=== PATIENT | male | born 1960 | race Caucasian/White ===

== ENCOUNTER 2024-06-16 09:37 | Outpatient (RCR) | payer BC, SELFPAY ==
--- NOTE | 2024-06-16 14:03 | CTCFLWUP_ITS ---
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 He underwent parotidectomy and chemoradiation, with his last PET scan in May 2023 showing no interval metastatic disease. He reports successful smoking cessation 3 months ago and is experiencing seasonal allergies with congestion and pressure. Physical examination reveals tightness in the oral cavity. Plans include ordering a CT scan for surveillance, referring to ENT for evaluation, and advising oral exercises. 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 He underwent parotidectomy and chemoradiation, with his last PET scan in May 2023 showing no interval metastatic disease. Mr. Barrera reports feeling generally well, with his main complaint being seasonal allergies. He experiences congestion, head pressure, fatigue, and feeling washed out when exposed to outdoor allergens, particularly in the [facility] area. These symptoms are worse in the morning and improve when he is indoors. He notes that he never had allergies until moving to this area. The patient quit smoking completely 3 months ago, in February 2024. He had previously been using Wellbutrin to assist with smoking cessation and reports that it was helpful. He mentions that mornings with coffee were particularly challenging, during which he would smoke two or three cigarettes, but now he has ceased all tobacco use. Mr. Barrera denies any new symptoms related to his cancer history. He has not had any recent scans or follow-ups with ENT since his initial cancer diagnosis and treatment. He reports no difficulty with eating or swallowing, though the clinician notes some tightness in his oral cavity during examination. The patient's overall health appears stable, with no reported significant changes in his physical or mental status since his last visit. He remains active, planning a cruise to [place] next month and a motor home trip to [place] for the summer. 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 Previously used Wellbutrin to aid cessation. Last smoked 2-3 cigarettes per day, primarily in the morning with coffee. - Living Situation: Lives with spouse and adult daughter with her baby - Family: Has 4 daughters, one of whom lives with patient - Hobbies/Interests: Owns a [employer], plans to travel to [place] for a cruise and to [facility] for the summer - Occupation: Retired Review of Systems General: Positive for fatigue. HEENT: Positive for nasal congestion, sinus pressure. Respiratory: Positive for allergies. ONCOLOGY HISTORY: DIAGNOSIS: Stage III (T1, N1) poorly differentiated carcinoma, favor squamous cell carcinoma of the right parotid gland. P16 negative. S/p right superficial parotidectomy with facial nerve dissection and monitoring (03/07/2021) S/p chemoradiation using weekly cisplatin as a radiosensitizing agent (05/09/2021 - 06/13/2021). 8 mm left lung posterior nodule (CT scan 06/02/2023) Stopped smoking 06/03/2023. REASON FOR TODAY?S VISIT: This is office follow-up visit. Mr. Barrera is here at [facility]. He is clinically doing well. Denies any cough, chest pain, abdominal pain or leg cramps. Ambulating well without any help. Recent PET/CT scan was negative for recurrence. CT scan of the chest showed a 8 mm nodule which was 7 mm on the prior scan as documented below. Mr. Barrera stopped smoking on June 03, 2023. 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 July 2020: Patient started noticing a mass in the right angle of the jaw. 10/31/2020: CT scan of the neck without contrast? 12/11/2020: MRI of the orbit, face and neck with and without contrast? 01/03/2021: fine-needle aspiration of the right parotid neck mass? 03/07/2021: Mr. Barrera had a right superficial parotidectomy with facial nerve dissection and monitoring 05/06/2021?06/21/2021: Mr. Barrera was treated with 6300 cGy radiation along with weekly cisplatin in the adjuvant setting. 10/04/2027 2: MRI scan of the face and neck with and without contrast? 11/07/2021: CT scan of the chest without contrast? 04/09/2022: CT scan of the chest without contrast 06/02/2023: CT scan of the chest without contrast? 06/08/2023: PET/CT scan OTHER MEDICAL HISTORY/CONDITIONS: FAMILY HISTORY: ?Clone Family Hx? SOCIAL HISTORY: MEDICATIONS: 1. multivitamin - 1 Capsule Daily 2. naproxen - 500 mg As directed 3. [place] - 5 mg As needed 4. Wellbutrin SR - 150 mg Daily?Palabra Meds? Medications Last Reconciled by Federica Huff MA on 06/16/2024 ALLERGIES: No Known Allergies REVIEW OF SYSTEMS: A complete 14-point review of systems was performed and is negative except as noted in interval history. PHYSICAL EXAMINATION: VITAL SIGNS: Temperature?98.7, B/P?119/85, Oxygen?Saturation?95% Weight?222?lbs PAIN: 0 - No pain ECOG Performance Status: 0 - Asymptomatic and fully active GENERAL APPEARANCE: Appears well, in no apparent distress, appropriately interactive. HEENT: Normocephalic, no temporal wasting, normal conjunctiva, no scleral icterus, normal hearing, lips without lesions, neck normal range of motion. CARDIOVASCULAR: Not assessed. PULMONARY: Normal respiratory effort, no respiratory distress or use of accessory muscles, speaking in full sentences, no tachypnea. EXTREMITIES: No pedal edema or cyanosis. SKIN: Normal skin appearance. NEUROLOGIC: Alert and oriented x4. PSHYCHIATRIC: Appropriate affect, mood normal, behavior normal, intact thought and speech. LABORATORY DATA: I have personally reviewed and interpreted each of the patient?s relevant lab tests, abnormal findings are below: Date 04/16/22 05/07/23 ??WHITE?BLOOD?COUNT?(Thou/mm3) 8.2 9.3 ??RED?BLOOD?COUNT?(Miln/mm3) 4.95 4.93 ??HEMOGLOBIN?(gm/dl) 15.2 14.9 ??HEMATOCRIT?(%) 45.7 44.1 ??PLATELET?COUNT?(Thou/mm3) 292 281 ??NEUTROPHILS?%,?AUTO?(%) 70 67 ??LYMPH?%,?AUTO?(%) 21 23 ??NEUTROPHILS,?AUTO?(Thou/mm3) 5.7 6.2 ??GLUCOSE,RANDOM?(mg/dL) ? 85 ??BLOOD?UREA?NITROGEN?(mg/dL) ? 10 ??CREATININE?(mg/dL) ? 0.90 ??SODIUM?(mmol/L) ? 138 ??POTASSIUM?(mmol/L) ? 4.0 ??CHLORIDE?(mmol/L) ? 105 ??CrCl?(CandG)?(ml/min) ? 105.07 ??AST/SGOT?(Unit/L) ? 17 ??ALT/SGPT?(Unit/L) ? 14 ??ALKALINE?PHOSPHATASE?(Unit/L) ? 50 ??BILIRUBIN,?TOTAL?(mg/dL) ? 0.5 ??PROTEIN?TOTAL?(gm/dl) ? 7.7 ??ALBUMIN,?SERUM?(gm/dl) ? 4.5 ??GLOBULIN?(gm/dl) ? 3.2 ??ALBUMIN/GLOBULIN?RATIO ? 1.4 ??CALCIUM,?SERUM?(mg/dL) ? 9.6 ??CALCIUM?SERUM?(CORRECTED)?(mg/dL) ? 9.6 ??CEA?(O*)?(ng/ml) ? 3.5 Physical Examination HEENT: Oral cavity is congested and tight. Tongue appears large relative to mouth size. Limited ability to open mouth wide due to prior surgery. Unable to visualize posterior oropharynx. Laboratory, Imaging, and Diagnostic Test Results - PET scan (May 2023): No interval metastatic disease - CT scan (October 2023): Lung nodules stable since May, no other significant findings ASSESSMENT/PLAN: Stage III (T1, N1) poorly differentiated carcinoma, favor squamous cell carcinoma of the right parotid gland. P16 negative. 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 He underwent parotidectomy and chemoradiation. Last PET scan in May 2023 showed no interval metastatic disease. Patient remains at high risk for recurrence until this year. No recent imaging studies have been performed since October 2023, which showed stable lung nodules. Given the history of parotid cancer and smoking, there is a need for close surveillance of the aerodigestive tract. Plan: - Order CT scan of neck and chest for surveillance - Refer to ENT for full evaluation, including endoscopic examination of the upper aerodigestive tract - Follow up in 6 months to review scan results and ENT evaluation - Advised patient to perform oral exercises: - Gargle with salt water, especially at night - Practice opening mouth wide and moving tongue to strengthen muscles Smoking cessation Assessment: Patient reports successful smoking cessation 3 months ago (February 2024). Previously used Wellbutrin to assist with cessation. Patient remains at high risk for smoking-related cancers, particularly lung cancer and cancers of the aerodigestive tract. Plan: - Continue to monitor for potential smoking-related cancers during follow-up visits - Encourage continued abstinence from smoking ORDERS: Order # Description [id number] CT Scan + Chest + Neck + With W/O Contrast [id number] Comprehensive Metabolic Panel - 12 + CBC with Auto Diff + MD Follow Up 6 Month RETURN TO CLINIC: I will see him back in 2 months with a telephone appointment for the scan and then in the clinic in 6 month. BILLING AND COMPLIANCE: I reviewed external records from providers outside my specialty as summarized above. I spent a total of 50 minutes on this patient?s care on the day of their visit excluding time spent related to any billed procedures. This time includes time spent with the patient as well as time spent documenting in the medical record, reviewing patients records and tests, obtaining history, placing orders, communicating with other healthcare professionals, counseling the patient, family or caregiver, and/or care coordination for the diagnoses above. Electronically Signed by: Rodriguez Thayer MD T: 2:01 PM CC: PCP: Kassidy Leyva Referring: Kassidy Leyva This document was completed utilizing speech recognition software. Grammatical errors, random word insertions, pronoun errors, and incomplete sentences are an occasional consequence of this system due to software limitations, ambient noise, and hardware issues. Any formal questions or concerns about the content, text or information contained within the body of this dictation should be directly addressed to the provider for clarification.
== END 2024-06-22 23:59 | disposition home or self-care (01) ==
LOC: SCTC 09:37
PROVIDERS: PCP Family Medicine; Referring Provider Nurse Practitioner Family; Visit Provider Internal Medicine Hematology & Oncology
DX: C07 Malignant neoplasm of parotid gland (principal); Z90.89 Acquired absence of other organs; Z92.3 Personal history of irradiation; Z92.21 Personal history of antineoplastic chemotherapy; Z87.891 Personal history of nicotine dependence
CPT/HCPCS: 99212; G0463

== ENCOUNTER → 2024-07-21 | Outpatient (CLI) | payer BC, SELFPAY ==
[2024-07-19 10:27] LABS: Basophils # (Auto) 0.1 Thou/mm3 (0.0-0.2); Basophils % (Auto) 1 % (0-2.5); Eosinophils # (Auto) 0.3 Thou/mm3 (0.0-0.5); Eosinophils % (Auto) 4 % (0-10); Hematocrit 45.6 % (41.0-53.0); Hemoglobin 15.4 g/dL (13.5-16.0); Immature Granulocytes % (Auto) 0 % (0-0); Immature Granulocytes Auto 0.01 Thou/mm3 (0.00-0.00); Lymphocytes # (Auto) 1.8 Thou/mm3 (1.0-4.8); Lymphocytes % (Auto) 24 % (10-50); Mean Corpuscular HGB Conc 33.8 g/dl (31.0-37.0); Mean Corpuscular Hemoglobin 30.6 pg (25.0-35.0); Mean Corpuscular Volume 91 fL (80-100); Monocytes # (Auto) 0.6 Thou/mm3 (0.0-0.8); Monocytes % (Auto) 8 % (0-12); Neutrophils # (Auto) 4.5 Thou/mm3 (1.8-7.7); Neutrophils % (Auto) 63 % (37-80); Nucleated Red Blood Cell % 0 /100 WBC (0); Platelet Count 259 Thou/mm3 (140-440); RDW Standard Deviation 42.8 fL (35.1-43.9); Red Blood Count 5.04 Miln/mm3 (4.50-5.90); White Blood Count 7.2 Thou/mm3 (3.8-10.6)
[2024-07-19 10:58] LABS: Alanine Aminotransferase 31 U/L (10-49); Albumin, Serum 4.4 gm/dL (3.4-4.8); Albumin/Globulin Ratio 1.7 (1.2-2.2); Alkaline Phosphatase 55 U/L (46-116); Anion Gap 11 (7-16); Aspartate Amino Transferase 28 U/L (0-34); BUN/Creatinine Ratio 13 Ratio (12-20); Bilirubin,Total 0.4 mg/dL (0.3-1.2); Blood Urea Nitrogen 13 mg/dL (9-23); Calcium 9.1 mg/dL (8.3-10.6); Calcium (Corrected) 9.1 mg/dL (8.5-10.1); Carbon Dioxide 26.3 mMol/L (20.0-31.0); Chloride 106 mMol/L (98-107); Globulin 2.6 gm/dL (2.3-3.5); Glucose 105 mg/dL (74-106); Osmolality,Calculated 285 (275-295); Potassium 4.4 mMol/L (3.4-5.1); Sodium 143 mMol/L (136-145); eGFR > 60 See Note
--- NOTE | 2024-07-21 | XR_ITS ---
Examination: CT soft tissue neck, without intravenous contrast. 2-D coronal reconstructions. 2-D sagittal reconstructions. Date and time of exam :July 21, [address] soft tissue neck 10/31/2020 INDICATIONS: Diagnosis malignant neoplasm parotid gland, 16 mm mass in the right parotid gland on CT soft tissue neck 2020. CTDI: vol (mGy):19.6 DLP: (mGycm):605 Technique: 1.25 mm axial sections of the neck of the obtained. Coronal and sagittal reconstructions have been obtained. Low dose protocols were performed. One or more of the following dose reduction techniques were used; automated exposure control, adjustment of the mA and/or KV according to patient size, use of iterative reconstruction technique. Findings: Please see the CT soft tissue neck report with contrast There is resection of the right parotid gland with surgical clips No mass in the parotid bed on the right is noted No pathologic lymphadenopathy Normal epiglottis The larynx appears normal IMPRESSION: Status post resection right parotid gland No pathologic cervical lymphadenopathy
--- NOTE | 2024-07-21 | XR_ITS ---
Examination: CT chest, without intravenous contrast. Sagittal and coronal 2-D reconstructions. Exam date and time: July 21, 2024 1541 hours INDICATIONS: Diagnosis malignant neoplasm parotid gland, pulmonary nodules on CT chest June 02, 2023 CTDI:vol (mGy) 25.4 DLP: (mGycm) 970 Technique: Multiple 3.0 mm axial sections of the chest to been obtained. Bone and lung density settings are obtained. Sagittal and coronal 2-D reconstructions have been obtained. Low dose protocols were performed. One or more of the following dose reduction techniques were used; automated exposure control, adjustment of the mA and/or KV according to patient size, use of iterative reconstruction technique. Findings: Please see the CT chest report postcontrast today New 3 mm pulmonary nodule right middle lobe compared to CT chest November 20, 2023 IMPRESSION: New 3 mm pulmonary nodule right middle lobe compared to CT chest November 20, 2023, recommend six-month follow-up CT chest without contrast
--- NOTE | 2024-07-21 14:30 | XR_ITS ---
Examination: CT soft tissue neck with intravenous contrast CT chest with intravenous contrast 2-D sagittal and coronal reconstructions Exam date and time: July 21, [address] chest with intravenous contrast 11/20/2023, PET CT scan June 08, 2023, CT soft tissue neck 10/31/2020 INDICATIONS: Smoking history 40 years, 4 mm pulmonary nodule left upper lobe 3 mm pulmonary nodule anterior left lung 7 mm pulmonary nodule left lower lobe on CT chest November 20, 2023, 16 mm right parotid gland mass on CT soft tissue neck 10/31/2020 CTDI:vol (mGy) 50.3 DLP: (mGycm) 1838 Technique: Multiple axial sections of the soft tissue neck thorax have been obtained. Sections have been obtained, 3 mm slice thickness. Mediastinal and lung density settings have been obtained. Intravenous contrast administered, 60 cc Isovue 370 2-D sagittal, coronal images obtained. Low dose protocols were performed. One or more of the following dose reduction techniques were used; automated exposure control, adjustment of the mA and/or KV according to patient size, use of iterative reconstruction technique. Findings: Small retention cyst left maxillary antrum Symmetrical nasopharynx oropharynx Surgical resection right parotid gland 8mm right carotid triangle lymph node The larynx appears normal Normal epiglottis Moderate degenerative disc disease C6-C7 Thoracic aortic calcification no aneurysm dilatation No pulmonary artery filling defects No paratracheal tracheobronchial or bronchopulmonary adenopathy COPD with areas of airspace destruction New 3 mm pulmonary nodule right middle lobe, axial image 65, not seen on the 11/20/2023 exam Moderate pulmonary fibrosis No visualized liver or splenic lesion Contracted gallbladder No pancreatic mass Normal adrenal glands Kidneys partially visualized no hydronephrosis IMPRESSION: Status post resection right parotid gland No pathologic cervical lymphadenopathy. The larynx appears normal COPD, moderate pulmonary fibrosis New 3 mm pulmonary nodule right middle lobe, not seen on the CT chest November 20, 2023, suggest continued six-month follow-up CT chest
== END | disposition home or self-care (01) ==
LOC: CCTX 14:01
PROVIDERS: PCP Family Medicine; Referring Provider Internal Medicine Hematology & Oncology; Visit Provider Internal Medicine Hematology & Oncology
DX: J44.9 Chronic obstructive pulmonary disease, unspecified (principal); R91.1 Solitary pulmonary nodule; J84.10 Pulmonary fibrosis, unspecified; Z98.890 Other specified postprocedural states
CPT/HCPCS: 36415; 70490; 70491; 70492; 71250; 71260; 71270; 80053; 85025; A4649; Q9967

== ENCOUNTER 2024-12-19 10:47 | Outpatient (RCR) | payer BC, SELFPAY ==
--- NOTE | 2024-12-20 21:37 | CTCFLWUP_ITS ---
Patient: EDISON BARRERA : 1960 Page 7 of 8 FOLLOW UP NOTE DATE OF SERVICE: 12/19/2024 NAME: EDISON BARRERA ACCOUNT: [id number] : 1960 AGE: 64 INTERVAL HISTORY: Chief Complaint Patient is yet to see ENT but have appointment . patient is doing well . he still have dry mouth and have issues with his teeth. 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 Previously used Wellbutrin to aid cessation. Last smoked 2-3 cigarettes per day, primarily in the morning with coffee. - Living Situation: Lives with spouse and adult daughter with her baby - Family: Has 4 daughters, one of whom lives with patient - Hobbies/Interests: Owns a [email or web address], plans to travel to [place] for a cruise and to [facility] for the summer - Occupation: Retired Review of Systems General: Positive for fatigue. HEENT: Positive for nasal congestion, sinus pressure. Respiratory: Positive for allergies. ONCOLOGY HISTORY: DIAGNOSIS: Stage III (T1, N1) poorly differentiated carcinoma, favor squamous cell carcinoma of the right parotid gland. P16 negative. S/p right superficial parotidectomy with facial nerve dissection and monitoring (03/07/2021) S/p chemoradiation using weekly cisplatin as a radiosensitizing agent (05/09/2021 - 06/13/2021). 8 mm left lung posterior nodule (CT scan 06/02/2023) Stopped smoking 06/03/2023. REASON FOR TODAY?S VISIT: This is office follow-up visit. Mr. Barrera is here at [facility]. He is clinically doing well. Denies any cough, chest pain, abdominal pain or leg cramps. Ambulating well without any help. Recent PET/CT scan was negative for recurrence. CT scan of the chest showed a 8 mm nodule which was 7 mm on the prior scan as documented below. Mr. Barrera stopped smoking on June 03, 2023. Malignant neoplasm of parotid gland [ICD10] C07 DATE OF DIAGNOSIS: STAGE/TNM: TREATMENT HISTORY: Care?Plan Start?Date Cycle Day Intent CISplatin?40?mg/m*2?+?Radiation?Therapy?-?Primary,?Adj,?Rec?1 05/09/2021 1 7 Curative?(adjuvant) HISTORY OF PRESENT ILLNESS: Edison Barrera is a 64-year-old ENG speaking male working as a [employer] at [employer] here in [place], with [id number] smoking history, continues to smoke 1-1/2 pack cigarettes at this time has the following oncology history. July 2020: Patient started noticing a mass in the right angle of the jaw. 10/31/2020: CT scan of the neck without contrast? 12/11/2020: MRI of the orbit, face and neck with and without contrast? 01/03/2021: fine-needle aspiration of the right parotid neck mass? 03/07/2021: Mr. Barrera had a right superficial parotidectomy with facial nerve dissection and monitoring 05/06/2021?06/21/2021: Mr. Barrera was treated with 6300 cGy radiation along with weekly cisplatin in the adjuvant setting. 10/04/2027 2: MRI scan of the face and neck with and without contrast? 11/07/2021: CT scan of the chest without contrast? 04/09/2022: CT scan of the chest without contrast 06/02/2023: CT scan of the chest without contrast? 06/08/2023: PET/CT scan OTHER MEDICAL HISTORY/CONDITIONS: FAMILY HISTORY: SOCIAL HISTORY: MEDICATIONS: 1. albuterol sulfate - 90 mcg/actuation 1 Puff(s) 1-2 puffs as needed ,every 2-3 hrs for bronchospas 2. benzonatate - 100 mg 1 Capsule twice daily 3. multivitamin - 1 Capsule Daily 4. naproxen - 500 mg As directed 5. Brady - 5 mg As needed 6. Wellbutrin SR - 150 mg Daily Medications Last Reconciled by Yasemin Basurto MD on 12/19/2024 ALLERGIES: No Known Allergies REVIEW OF SYSTEMS: A complete 14-point review of systems was performed and is negative except as noted in interval history. PHYSICAL EXAMINATION: VITAL SIGNS: Temperature?97.9, B/P?124/83, Oxygen?Saturation?93% Weight?230?lbs PAIN: 0 - No pain ECOG Performance Status: 0 - Asymptomatic and fully active GENERAL APPEARANCE: Appears well, in no apparent distress, appropriately interactive. HEENT: Normocephalic, no temporal wasting, normal conjunctiva, no scleral icterus, normal hearing, lips without lesions, neck normal range of motion. CARDIOVASCULAR: Not assessed. PULMONARY: Normal respiratory effort, no respiratory distress or use of accessory muscles, speaking in full sentences, no tachypnea. EXTREMITIES: No pedal edema or cyanosis. SKIN: Normal skin appearance. NEUROLOGIC: Alert and oriented x4. PSHYCHIATRIC: Appropriate affect, mood normal, behavior normal, intact thought and speech. LABORATORY DATA: I have personally reviewed and interpreted each of the patient?s relevant lab tests, abnormal findings are below: Date 05/07/23 07/19/24 ??WHITE?BLOOD?COUNT?(Thou/mm3) 9.3 7.2 ??RED?BLOOD?COUNT?(Miln/mm3) 4.93 5.04 ??HEMOGLOBIN?(gm/dl) 14.9 15.4 ??HEMATOCRIT?(%) 44.1 45.6 ??PLATELET?COUNT?(Thou/mm3) 281 259 ??NEUTROPHILS?%,?AUTO?(%) 67 63 ??LYMPH?%,?AUTO?(%) 23 24 ??NEUTROPHILS,?AUTO?(Thou/mm3) 6.2 4.5 ??GLUCOSE,RANDOM?(mg/dL) 85 105 ??BLOOD?UREA?NITROGEN?(mg/dL) 10 13 ??CREATININE?(mg/dL) 0.90 1.00 ??SODIUM?(mmol/L) 138 143 ??POTASSIUM?(mmol/L) 4.0 4.4 ??CHLORIDE?(mmol/L) 105 106 ??CrCl?(CandG)?(ml/min) 105.07 89.17 ??AST/SGOT?(Unit/L) 17 28 ??ALT/SGPT?(Unit/L) 14 31 ??ALKALINE?PHOSPHATASE?(Unit/L) 50 55 ??BILIRUBIN,?TOTAL?(mg/dL) 0.5 0.4 ??PROTEIN?TOTAL?(gm/dl) 7.7 7.0 ??ALBUMIN,?SERUM?(gm/dl) 4.5 4.4 ??GLOBULIN?(gm/dl) 3.2 2.6 ??ALBUMIN/GLOBULIN?RATIO 1.4 1.7 ??CALCIUM,?SERUM?(mg/dL) 9.6 9.1 ??CALCIUM?SERUM?(CORRECTED)?(mg/dL) 9.6 9.1 ASSESSMENT/PLAN: Stage III (T1, N1) poorly differentiated carcinoma, favor squamous cell carcinoma of the right parotid gland. P16 negative. 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 He underwent parotidectomy and chemoradiation. Last PET scan in May 2023 showed no interval metastatic disease. Patient remains at high risk for recurrence until this year. No recent imaging studies have been performed since October 2023, which showed stable lung nodules. Given the history of parotid cancer and smoking, there is a need for close surveillance of the aerodigestive tract. CT scan neck is negative Need follow up on CT chest to follow on nodules RTC after scan Smoking cessation Assessment: Patient reports successful smoking cessation 3 months ago (February 2024). Previously used Wellbutrin to assist with cessation. Patient remains at high risk for smoking-related cancers, particularly lung cancer and cancers of the aerodigestive tract. Plan: - Continue to monitor for potential smoking-related cancers during follow-up visits - Encourage continued abstinence from smoking ORDERS: Order # Description [id number] Follow Up 3 Months [id number] Follow Up 6 Month RETURN TO CLINIC: I reviewed the diagnosis, prognosis, and recommended treatment/procedure options with the patient (and/or their legal telephone service representative), including the potential benefits, risks, side effects and alternative therapies. We also discussed the option of no treatment and the possibility of clinical trial participation, if applicable. All questions were addressed, and they demonstrated understanding. They provided informed consent to proceed with the proposed plan of care. BILLING AND COMPLIANCE: I reviewed external records from providers outside my specialty as summarized above. I spent a total of 50 minutes on this patient?s care on the day of their visit excluding time spent related to any billed procedures. This time includes time spent with the patient as well as time spent documenting in the medical record, reviewing patients records and tests, obtaining history, placing orders, communicating with other healthcare professionals, counseling the patient, family or caregiver, and/or care coordination for the diagnoses above. Electronically Signed by: {Object.Sanct_ID*PnP.NameFL@M}, {Object.Sanct_ID*PnP.Suffix@U} D: {Object.Sanct_Date} T: {Object.Sanct_Time} CC: PCP: Bib Thompson Referring: Bib Thompson This document was completed utilizing speech recognition software. Grammatical errors, random word insertions, pronoun errors, and incomplete sentences are an occasional consequence of this system due to software limitations, ambient noise, and hardware issues. Any formal questions or concerns about the content, text or information contained within the body of this dictation should be directly addressed to the provider for clarification.
== END 2024-12-23 23:59 | disposition home or self-care (01) ==
LOC: SCTC 10:47
PROVIDERS: PCP Family Medicine; Referring Provider Family Medicine; Visit Provider Internal Medicine Hematology & Oncology
DX: C07 Malignant neoplasm of parotid gland (principal); Z92.3 Personal history of irradiation; Z92.21 Personal history of antineoplastic chemotherapy; Z87.891 Personal history of nicotine dependence
CPT/HCPCS: 99212; G0463

== ENCOUNTER → 2025-01-06 | Outpatient (CLI) | payer BC, SELFPAY ==
[2025-01-06 08:50] VITALS: PULSE 105; PULSE 110; RESP 20; O2SAT 99
[2025-01-06] MEDS: ALBUTEROL RT 2.5 MG/3 ML NEBU INH (08:50)
== END | disposition home or self-care (01) ==
LOC: SRTX 08:12
PROVIDERS: PCP Family Medicine; Referring Provider Internal Medicine Hematology & Oncology; Visit Provider Internal Medicine Hematology & Oncology
DX: J44.9 Chronic obstructive pulmonary disease, unspecified (principal); C07 Malignant neoplasm of parotid gland
CPT/HCPCS: 94013; 94060; 94640; 94726; 94729

== ENCOUNTER → 2025-01-31 | Outpatient (CLI) | payer BC, SELFPAY ==
--- NOTE | 2025-01-31 10:40 | XR_ITS ---
Examination: Lumbar spine, 7 views Technique: Lumbar spine AP, lateral, coned lateral lower lumbar spine, bilateral obliques, standing lateral flexion, standing lateral extension 7 views Exam date and time: January 31, 2025, 1048 hours INDICATIONS: Lower back pain years, worse the last 2 weeks. FINDINGS: Moderate to advanced diffuse facet arthropathy Grade 2 anterolisthesis L4 on L5 Diffuse lumbar degenerative disc disease, advanced at L5-S1, moderate disc narrowing L4-L5 Anterolisthesis L4 on L5 measures 11 mm in flexion and 12 mm in extension IMPRESSION: Diffuse lumbar degenerative disc disease, moderate L4-L5, advanced L5-S1 Grade 2 anterolisthesis L4 on L5
== END | disposition home or self-care (01) ==
LOC: CDIM 10:25
PROVIDERS: PCP Family Medicine; Referring Provider Family Medicine; Visit Provider Family Medicine
DX: M51.360 Other intervertebral disc degeneration, lumbar region with discogenic back pain only (principal); M51.370 Other intervertebral disc degeneration, lumbosacral region with discogenic back pain only
CPT/HCPCS: 72110